=== PATIENT | female | born 1950 | race Caucasian/White ===

== ENCOUNTER → 2024-08-21 | Outpatient (CLI) | payer OTHER | LOC: LAB 14:50 → LAB SHORT 14:50 | DX: N39.0 Urinary tract infection, site not specified (principal) | CPT/HCPCS: 87086 ==

== ENCOUNTER → 2024-09-28 | Outpatient (CLI) | payer OTHER | END | disposition home or self-care (01) | LOC: LAB 17:59 → LAB SHORT 17:59 | DX: R31.9 Hematuria, unspecified (principal) | CPT/HCPCS: 87086 ==

== ENCOUNTER 2024-12-17 06:08 | Day surgery (SDC) | payer OTHER ==
[~2024-12-17] VITALS: Ht 170.2 cm; Wt 99.7 kg
[2024-12-17] MEDS ORDERED: FentaNYL Citrate 50 MCG/ML 2 ML Injection ONE (06:54)
[2024-12-17] MEDS ORDERED: Ondansetron HCl 2 MG / ML 2ML Vial ONE (06:57)
[2024-12-17] MEDS ORDERED: Dexamethasone Sod Phos 10 MG/ML 1ML VIAL ONE (06:57)
[2024-12-17] MEDS ORDERED: Lidocaine 2% Jelly Uro-Jet ONE (07:04)
[2024-12-17] MEDS ORDERED: EUTHYROX75 MC1 PO (07:05)
[2024-12-17] MEDS ORDERED: ROSUVASTATIN CA10 MG PO (07:05)
[2024-12-17] MEDS ORDERED: BUPRENORPHINE HC2 M1 SL (07:06)
[2024-12-17] MEDS ORDERED: CHLO25B PO (07:06)
[2024-12-17] MEDS ORDERED: ZOLOFT10013 PO (07:06)
[2024-12-17] MEDS ORDERED: Venlafaxine HC150 MG PO (07:07)
[2024-12-17] MEDS ORDERED: CeFAZolin Sodium 2,000 MG VIAL ONE (07:12)
[2024-12-17] MEDS ORDERED: Glycopyrrolate 0.2 MG/ML 5ML VIAL ONE (08:00)
[2024-12-17] MEDS ORDERED: SuccINYLCHOLINE Chloride 100 MG/5 ML 5MLSYR ONE (08:19)
== END 2024-12-17 09:45 | disposition home or self-care (01) ==
LOC: ORSCSDS 06:08
PROVIDERS: Urology
PROC: 0T778DZ Dilation of Left Ureter with Intraluminal Device, Via Natural or Artificial Opening Endoscopic (ICD-10-PCS; principal; 2024-12-17 07:30)
PROC: 0TC18ZZ Extirpation of Matter from Left Kidney, Via Natural or Artificial Opening Endoscopic (ICD-10-PCS; principal; 2024-12-17 07:30)
DX: N20.0 Calculus of kidney (principal); I10 Essential (primary) hypertension; G47.33 Obstructive sleep apnea (adult) (pediatric); F41.9 Anxiety disorder, unspecified; F32.A Depression, unspecified; E66.9 Obesity, unspecified; Z68.34 Body mass index [BMI] 34.0-34.9, adult; E78.5 Hyperlipidemia, unspecified; E03.9 Hypothyroidism, unspecified; Z98.84 Bariatric surgery status; Z79.899 Other long term (current) drug therapy
CPT/HCPCS: 82365; C1769; C1894; C2617; J0330; J0690; J1100; J2405; J2704; J3010; J7120